=== PATIENT | male | born 1965 | race Caucasian/White ===

== ENCOUNTER → 2020-03-21 | Outpatient (CLI) | payer SELFPAY ==
--- NOTE | 2020-03-22 12:51 | NUR ---
Notified patient and [facility] dept [place] of positive COVID. Questions answered and quarantine educated to patient.
== END ==
LOC: LAB FS 10:10
PROVIDERS: ATTEND Family Medicine
DX: U07.1 COVID-19 (principal)
CPT/HCPCS: 87635